=== PATIENT | male | born 1965 | race Caucasian/White ===

== ENCOUNTER 2017-05-14 18:58 | Emergency (ER) | payer MEDICAID ==
[~2017-05-14] VITALS: Ht 188 cm; Wt 81.6 kg
--- NOTE | 2017-05-14 19:37 | PHYS DOC ---
General Chief Complaint: EYE PROBLEMS Stated Complaint: EYE PROBLEMS Time Seen by MD: 18:59 Source: patient Exam Limitations: no limitations Problems: History of Present Illness Initial Comments Pt is 51/M to ED with SO c/o left eye symptoms. Pt states he awoke this am with left eye redness, itching, and drainage. He says he's unsure if "I might have gotten some sand in it when I was sleeping." He denies welding or windy/cliff conditions where he might have been at risk for FB. Denies vision changes, no right eye symptoms, he is able to fully open his eye denies photophobia. No known contacts with conjunctivitis. No SIMS/fever /chills, no other complaints. I discussed need for tetracaine/fluorescein evaluation to r/o FB and evaluate for corneal abrasion. Pt states he has legally blind special needs son at home. He says [facility], and that he'd already been gone longer than his child was expecting. Pt says he "can't remember" his phone number to call and advise he would be late and that his SO wasn't able to drive after dark. He requests "eye drops." BP 150/111, HR 107, pt says he gets nervous at hospitals and about his son, and denies cp/sob/focal neurodef or other sx. States he's up to date with immunizations and denies immunocompromise, denies contact lenses. Timing/Duration: this morning Severity: mild Location: eye (L) Prearrival Treatment: no prearrival treatment Modifying Factors: improves with other Associated Symptoms: other Allergies: Coded Allergies: No Known Drug Allergies (Unverified , 05/14/17) Past Medical History Medical History: other (CHF, COPD, GERD) Surgical History: noncontributory Social History Smoker: non-smoker Alcohol: none Drugs: none Constitutional: denies chills, denies diaphoresis, denies fever, denies malaise Eyes: see HPI Ears: denies dizziness, denies pain, denies tinnitus Nose: denies congestion, denies epistaxis, denies pain Throat: denies pain, denies swelling, denies neck stiffness, denies painful swallowing Respiratory: denies cough, denies shortness of breath, denies wheezing Cardiovascular: denies chest pain, denies palpitations, denies syncope Gastrointestinal: denies nausea, denies vomiting Physical Exam General Appearance: WD/WN, no apparent distress Eyes: right eye normal inspection, right eye PERRL, right eye EOMI, left eye other (conjunctiva injected, PERRLA/EOMI, clear discharge noted no swelling. 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 Pt aware that if FB persists could cause ulceration, severe infection, or vision loss. He refuses further evaluation, rx given pt advised to f/u with doctor tomorrow. He expressed agreement/understanding with treatment plan. Departure Time of Disposition: 19:40 Disposition: 01 HOME, SELF-CARE Diagnosis: conjunctivitis nos Condition: GOOD Patient Instructions: Conjunctivitis, Chemical, Epeh-pa-Cufy Additional Instructions: As discussed, due to your time constraints you have refused fluorescein eye exam against medical advice to evaluate for foreign body. If a foreign body is still present your symptoms may get worse including corneal ulceration and more severe infection. You are welcome to return at any time for further evaluation. OTC tylenol/ibuprofen as needed. Rx: polytrim, diclofenac ophthalmic Follow up with a doctor tomorrow for recheck. Return to ED with new or changing symptoms. ADALGISA VALENCIA DO May 14, 2017 19:37
[2017-05-14] MEDS ORDERED: POLY10DR OD (19:39)
[2017-05-14] MEDS ORDERED: DICL2.5D OS (19:39)
[2017-05-14 20:03] VITALS: BP 149/106
== END 2017-05-14 19:54 | disposition home or self-care (01) ==
LOC: ER 18:58
DX: H10.9 Unspecified conjunctivitis (principal); I50.9 Heart failure, unspecified; J44.9 Chronic obstructive pulmonary disease, unspecified; K21.9 Gastro-esophageal reflux disease without esophagitis
CPT/HCPCS: 99283